=== PATIENT | male | born 1985 | race Caucasian/White ===

== ENCOUNTER 2024-11-24 20:03 | Emergency (ER) | payer OTHER ==
[2024-11-24 20:33] LABS: BASOPHILS PERCENT AUTO 0.5 % (0.0-1.0); EOSINOPHILS PERCENT AUTO 4.2 % (1.0-3.0); HEMATOCRIT 41.6 % (40.0-54.0); HEMOGLOBIN 14.6 g/dL (14.0-18.0); LYMPHOCYTES PERCENT AUTO 32.2 % (20.5-50.1); MEAN CORPUSCULAR HEMOGLOBIN 31.8 pg (27.0-34.0); MEAN CORPUSCULAR HGB CONC 35.1 g/dL (33.0-35.0); MEAN CORPUSCULAR VOLUME 90.6 fL (80-100); NEUTROPHILS PERCENT AUTO 55.1 % (42.2-75.2); PLATELET COUNT,PLT 223 10^3/uL (150-450); RED BLOOD CELL COUNT 4.59 10^6/uL (4.6-6.2); WHITE BLOOD CELL COUNT,WBC 11.2 10^3/uL (5.0-10.0)
== END 2024-11-24 21:00 | disposition home or self-care (01) ==
LOC: DL.ED 20:03
DX: Z02.89 Encounter for other administrative examinations (principal)
CPT/HCPCS: 36415; 85025; 86140; 99283; 99284